=== PATIENT | male | born 1930 | race Caucasian/White ===

== ENCOUNTER 2016-12-21 08:41 | Inpatient (IN) | payer MEDICARE, BC ==
[~2016-12-21 08:41] MED LIST: ALDACTONE25 M1 PO; CARDURA4 M1 PO; CARDURA4 MG; COUMADIN5 M2 PO; COUMADIN5 MG; DEMADEX20 M1 PO; DIGOXIN250 MCG; HYZAAR 100-25 T1 TAB; NORVASC5 M2 PO; POTASSIUM CHLO10 ME2 PO; TOPROL XL100 MG; TOPROL XL25 M1 PO; ZYLOPRIM100 M1 PO
[2016-12-21] MEDS ORDERED: CIPRO500 M2 PO (09:01)
[2016-12-21] MEDS ORDERED: XANAX0.5 M1 PO (13:18)
[2016-12-21 16:24] LABS: BASO % 0.5 % (0-2); EOS % 2.2 % (0-7); EOSINOPHIL ABSOLUTE COUNT 0.1 tho/cmm (0.0-0.7); HGB-HEMOGLOBIN 9.9 gm/dl (13.5-17.0); IMMATURE GRANULOCYTES ABSOLUTE 0.01 tho/cmm (0-0.03); IMMATURE GRANULOCYTES PERCENT 0.2 % (0-0.3); LYMPH ABSOLUTE COUNT 0.7 tho/cmm (0.8-4.5); MCH (MEAN CORPUSCULAR HGB) 31.1 pg (28.0-32.0); MCV (MEAN CELL VOLUME) 94.3 fl (82.0-96.0); MEAN PLATELET VOLUME 8.8 cmc (9.4-12.4); MONO % 5.9 % (0-12); MONOCYTE ABSOLUTE COUNT 0.4 tho/cmm (0.0-1.2); NEUTROPHIL ABSOLUTE COUNT 5.1 tho/cmm (1.6-8.0); NEUTROPHIL-AUTOMATED 5.1 tho/cmm (1.6-8.0); NEUTROPHILS % 80.2 % (40-80); PLATELET COUNT 227 tho/cmm (150-450); RED BLOOD COUNT 3.18 mil/cmm (4.40-5.70); WHITE BLOOD COUNT 6.3 tho/cmm (4.0-10.0)
[2016-12-21 16:29] LABS: INR 2.2 INR (0.9-1.1); PROTHROMBIN TIME 26.2 SECONDS (9.0-13.6)
[2016-12-21 16:40] LABS: ANION GAP 12 mmol/L (0-20); BLOOD UREA NITROGEN 34 mg/dl (6-24); CALCIUM 8.3 mg/dl (8.5-10.5); CARBON DIOXIDE-VENOUS 29 mmol/L (22-32); CHLORIDE 105 mmol/l (96-110); CREATININE 1.59 mg/dl (0.60-1.30); GLUCOSE 125 mg/dL (70-110); MAGNESIUM 2.7 mg/dl (1.8-2.6); PHOSPHOROUS 2.7 mg/dl (2.5-4.9); POTASSIUM 4.6 mmol/L (3.7-5.1); SODIUM 141 mmol/L (135-145); eGFR VALUE FOR BLACK 44 mL/Min
[2016-12-21 22:54] LABS: URINE TOTAL PROTEIN-RANDOM 10.3 mg/dl (<11.8)
[2016-12-21 23:03] LABS: URINE PRT/CR RATIO 0.36 Ratio (0.0-0.20)
[2016-12-22 06:28] LABS: ANION GAP 11 mmol/L (0-20); BLOOD UREA NITROGEN 36 mg/dl (6-24); CALCIUM 8.2 mg/dl (8.5-10.5); CARBON DIOXIDE-VENOUS 31 mmol/L (22-32); CHLORIDE 106 mmol/l (96-110); CREATININE 1.71 mg/dl (0.60-1.30); GLUCOSE 88 mg/dL (70-110); MAGNESIUM 2.7 mg/dl (1.8-2.6); PHOSPHOROUS 3.1 mg/dl (2.5-4.9); SODIUM 144 mmol/L (135-145); eGFR VALUE FOR BLACK 41 mL/Min
[2016-12-23 06:39] LABS: ANION GAP 13 mmol/L (0-20); BLOOD UREA NITROGEN 42 mg/dl (6-24); CALCIUM 8.3 mg/dl (8.5-10.5); CARBON DIOXIDE-VENOUS 30 mmol/L (22-32); CHLORIDE 102 mmol/l (96-110); CREATININE 1.85 mg/dl (0.60-1.30); GLUCOSE 90 mg/dL (70-110); POTASSIUM 3.8 mmol/L (3.7-5.1); SODIUM 141 mmol/L (135-145); eGFR VALUE FOR BLACK 37 mL/Min
[2016-12-24 06:10] LABS: ANION GAP 15 mmol/L (0-20); BLOOD UREA NITROGEN 43 mg/dl (6-24); CALCIUM 8.2 mg/dl (8.5-10.5); CARBON DIOXIDE-VENOUS 29 mmol/L (22-32); CHLORIDE 103 mmol/l (96-110); GLUCOSE 122 mg/dL (70-110); POTASSIUM 3.6 mmol/L (3.7-5.1); SODIUM 143 mmol/L (135-145); eGFR VALUE FOR BLACK 36 mL/Min
[2017-02-01] MEDS ORDERED: CIPRO500 M2 (14:45)
[2017-02-01] MEDS ORDERED: CARDURA4 M1 PO (16:28)
[2017-02-01] MEDS ORDERED: COUMADIN2.5 M1 PO (16:29)
[2017-02-01] MEDS ORDERED: COUMADIN5 M2 PO (16:30)
[2017-02-01] MEDS ORDERED: MULTIVITAMINS1 EAC6 PO (16:31)
[2017-02-01] MEDS ORDERED: SALINE NASAL SP30 M1 INH (16:32)
[2017-02-01] MEDS ORDERED: DEMADEX20 M1 PO (17:04)
[2017-02-10] MEDS ORDERED: CULTURELLE1 EAC1 PO (15:57)
[2017-02-10] MEDS ORDERED: VANCOMYCIN HCL500 MG IV (16:20)
[2017-02-10] MEDS ORDERED: MERREM500 MG IV (16:21)
[2017-04-22] MEDS ORDERED: CITRATE OF MAG296 M1 PO (15:43)
[2017-04-22] MEDS ORDERED: MILK OF MAGNESIA PO (15:43)
[2017-04-22] MEDS ORDERED: MAPAP325 M2 PO (15:46)
[2017-04-22] MEDS ORDERED: ENEMA133 M4 PR (15:47)
[2017-04-22] MEDS ORDERED: BISCOLAX10 MG PR (15:47)
== END 2016-12-24 14:15 | DRG 292 ==
LOC: WCC 08:41 → BURN 11:51
PROVIDERS: Internal Medicine Nephrology; Surgery; ADMIT Surgery
PROC: 05H633Z Insertion of Infusion Device into Left Subclavian Vein, Percutaneous Approach (ICD-10-PCS; 2016-12-21)
PROC: 2W1LX6Z Compression of Right Lower Extremity using Pressure Dressing (ICD-10-PCS; principal; 2016-12-22)
PROC: 2W1RX6Z Compression of Left Lower Leg using Pressure Dressing (ICD-10-PCS; 2016-12-22)
DX: I13.0 Hypertensive heart and chronic kidney disease with heart failure and stage 1 through stage 4 chronic kidney disease, or unspecified chronic kidney disease (principal); L03.119 Cellulitis of unspecified part of limb; I48.91 Unspecified atrial fibrillation; N18.3 Chronic kidney disease, stage 3 (moderate); G62.9 Polyneuropathy, unspecified; I89.0 Lymphedema, not elsewhere classified; S80.922A Unspecified superficial injury of left lower leg, initial encounter; S80.921A Unspecified superficial injury of right lower leg, initial encounter; I50.9 Heart failure, unspecified; Z88.8 Allergy status to other drugs, medicaments and biological substances; Z96.652 Presence of left artificial knee joint; Z79.01 Long term (current) use of anticoagulants
CPT/HCPCS: C1751; G0463; J1940

== ENCOUNTER 2017-04-06 12:03 | Inpatient (IN) | payer MEDICARE, BC ==
[~2017-04-06] VITALS: Ht 175.3 cm; Wt 88.0 kg
[~2017-04-06 12:03] MED LIST changes: +CIPRO500 M2; +CIPRO500 M2 PO; +COUMADIN2.5 M1 PO; +CULTURELLE1 EAC1 PO; +MERREM500 MG IV; +MULTIVITAMINS1 EAC6 PO; +SALINE NASAL SP30 M1 INH; +VANCOMYCIN HCL500 MG IV; +XANAX0.5 M1 PO
[2017-04-06 16:53] LABS: BASO % 0.3 % (0-2); EOSINOPHIL ABSOLUTE COUNT 0.1 tho/cmm (0.0-0.7); HCT-HEMATOCRIT 30.1 % (36.0-53.5); HGB-HEMOGLOBIN 10.1 gm/dl (13.5-17.0); LYMPH % 15.3 % (20-45); LYMPH ABSOLUTE COUNT 0.5 tho/cmm (0.8-4.5); MCH (MEAN CORPUSCULAR HGB) 31.8 pg (28.0-32.0); MCHC MEAN CORPUSCULAR HGB CONC 33.6 % (32.0-36.0); MCV (MEAN CELL VOLUME) 94.7 fl (82.0-96.0); MEAN PLATELET VOLUME 9.9 cmc (9.4-12.4); MONOCYTE ABSOLUTE COUNT 0.3 tho/cmm (0.0-1.2); NEUTROPHIL ABSOLUTE COUNT 2.6 tho/cmm (1.6-8.0); NEUTROPHIL-AUTOMATED 2.6 tho/cmm (1.6-8.0); NEUTROPHILS % 72.4 % (40-80); PLATELET COUNT 114 tho/cmm (150-450); RED BLOOD COUNT 3.18 mil/cmm (4.40-5.70); RED CELL DISTRIBUTION WIDTH 18.3 % (12.4-16.4); WHITE BLOOD COUNT 3.5 tho/cmm (4.0-10.0)
[2017-04-06 17:02] LABS: INR 2.6 INR (0.9-1.1); PROTHROMBIN TIME 31.1 SECONDS (9.0-13.6)
[2017-04-06 17:11] LABS: ALB/GLOB RATIO 0.6 (0.8-2.0); ALKALINE PHOSPHATASE 87 U/L (33-138); ALT/SGPT 15 U/L (12-78); ANION GAP 10 mmol/L (0-20); AST/SGOT 20 U/L (10-40); BILIRUBIN,TOTAL 0.9 mg/dl (0.0-1.5); BLOOD UREA NITROGEN 50 mg/dl (6-24); CALCIUM 8.9 mg/dl (8.5-10.5); CARBON DIOXIDE-VENOUS 31 mmol/L (22-32); CHLORIDE 107 mmol/l (96-110); CREATININE 1.81 mg/dl (0.60-1.30); GLUCOSE 94 mg/dL (70-110); POTASSIUM 3.8 mmol/L (3.7-5.1); PREALBUMIN 17.6 mg/dl (20.0-40.0); SODIUM 144 mmol/L (135-145); eGFR VALUE FOR BLACK 38 mL/Min
[2017-04-09 16:51] LABS: CREATININE 2.23 mg/dl (0.60-1.30); eGFR VALUE FOR BLACK 29 mL/Min
[2017-04-10 06:47] LABS: CREATININE 2.06 mg/dl (0.60-1.30); eGFR VALUE FOR BLACK 32 mL/Min
[2017-04-10 19:27] LABS: INR 3.4 INR (0.9-1.1)
[2017-04-11 11:31] LABS: CREATININE 1.97 mg/dl (0.60-1.30); eGFR VALUE FOR BLACK 34 mL/Min
[2017-04-12 06:01] LABS: INR 3.2 INR (0.9-1.1); PROTHROMBIN TIME 39.2 SECONDS (9.0-13.6)
[2017-04-12 06:10] LABS: CREATININE 1.89 mg/dl (0.60-1.30); eGFR VALUE FOR BLACK 36 mL/Min
--- NOTE | 2017-04-12 07:12 | NUR ---
ATTEMPTED TO CALL X3 TIMES W/ RICHARD MELGAR AND GENE Dang RN. PHONE RANG MULTIPLE TIMES WITH NO ANSWER. RICHARD MELGAR STATED HE WILL TRY TO CONTACT LATER IN HIS SHIFT.
[2017-04-14 05:45] LABS: CREATININE 1.76 mg/dl (0.60-1.30); eGFR VALUE FOR BLACK 39 mL/Min
== END 2017-04-14 15:00 | DRG 603 ==
LOC: WCC 12:03 → EDSTATUS 13:00 → BURN 14:55 → WCC 04-13 13:00 → BURN 04-14 15:00
PROVIDERS: Physician Assistant Surgical; ADMIT Surgery
DX: L03.116 Cellulitis of left lower limb (principal); I50.9 Heart failure, unspecified; I48.91 Unspecified atrial fibrillation; L03.115 Cellulitis of right lower limb; I89.0 Lymphedema, not elsewhere classified; N40.0 Benign prostatic hyperplasia without lower urinary tract symptoms; Z96.652 Presence of left artificial knee joint; Z88.8 Allergy status to other drugs, medicaments and biological substances; N18.3 Chronic kidney disease, stage 3 (moderate); R41.0 Disorientation, unspecified; Z79.01 Long term (current) use of anticoagulants
CPT/HCPCS: G0463; J2185; J3370; J7050